=== PATIENT | male | born 1945 | race Caucasian/White ===

== ENCOUNTER 2020-01-11 01:02 | Outpatient (CLI) | payer MEDICARE, SELFPAY ==
[2020-01-11 18:01] LABS: SARS-CoV-2 RNA PCR Negative
== END 2020-01-11 01:03 | disposition home or self-care (01) ==
LOC: ANHCOVIDDT 01:03
PROVIDERS: PCP Family Medicine; Visit Provider Surgery
DX: Z01.812 Encounter for preprocedural laboratory examination (principal); Z20.828 Contact with and (suspected) exposure to other viral communicable diseases
CPT/HCPCS: 87635; C9803; U0003

== ENCOUNTER 2020-01-11 08:35 | Outpatient (CLI) | payer MEDICARE, SELFPAY ==
--- NOTE | 2020-01-11 08:41 | ECG_ITS ---
Measurements Intervals [place] Rate: 63 P: 66 [place]: 182 QRS: 7 QRSD: 84 T: 29 QT: 367 QTc: 376 Interpretive Statements SINUS RHYTHM DELAYED PRECORDIAL R/S TRANSITION BORDERLINE ECG Electronically Signed On 01-11-2020 9:39:43 CDT by Stiven Decker D.O.
[2020-01-11 09:36] LABS: Anion Gap 4 mmol/L (8-16); Blood Urea Nitrogen 25 mg/dL (9-20); Calcium 9.6 mg/dL (8.4-10.2); Carbon Dioxide 28 mmol/L (22-30); Chloride 106 mmol/L (98-107); Estimated Glomerular Filt Rate 46; Glucose 119 mg/dL (75-110); Potassium 5.5 mmol/L (3.4-5.0); Sodium 138 mmol/L (137-145)
== END 2020-01-11 08:36 | disposition home or self-care (01) ==
LOC: ANHSURGERY 08:41
PROVIDERS: Anesthesiology; PCP Family Medicine; Visit Provider Surgery
DX: E11.9 Type 2 diabetes mellitus without complications (principal); I10 Essential (primary) hypertension; Z01.818 Encounter for other preprocedural examination; R94.31 Abnormal electrocardiogram [ECG] [EKG]
CPT/HCPCS: 36415; 80048; 87635; 93005; C9803; U0003

== ENCOUNTER 2020-01-13 01:13 | Day surgery (SDC) | payer MEDICARE, SELFPAY ==
[2020-01-07 15:43] VITALS: BMI 23.0
--- NOTE | 2020-01-13 07:03 | WPDHPUPDATE1 ---
History and Physical Update Update Date/Time: 01/13/20 07:03 History and Physical has been reviewed, including an updated exam of the patient. There are NO changes in the patient's condition. Risks, benefits, and alternatives have been discussed and questions answered. Patient agrees to proceed with procedure.
[2020-01-13 07:04] VITALS: BP 152/78; PULSE 70; RESP 18; TEMP 36.3; O2SAT 99
[2020-01-13] MEDS: ACETAMINOPHEN 500 MG TABLET 1000 MG PO (07:18)
[2020-01-13] MEDS: LACTATED RINGERS 1,000 ML 30 ML IV CONT ×2 (07:33→10:00)
[2020-01-13] MEDS: KETOROLAC 15 MG/ML VIAL (*BKC) IV PUSH (07:36)
[2020-01-13 07:48] LABS: Glucose Point of Care 112 (65-105)
--- NOTE | 2020-01-13 08:05 | WPDANESEPPF ---
Anes - Initial Pre Proc Eval Procedure: Operation Date: 01/13/20 09:00 Proposed Procedures p Right Inguinal Hernia Repair - Gideon Reaves MD Date/Time: 01/13/20 08:05 Surgeon: Gideon Reaves MD Pre Op Diagnosis: Right Inguinal Hernia Patient Data Age: 74 Gender: M Height: 5 ft 11 in Weight: 74.6 kg Last Vital Signs Temp 97.3 F L 01/13/20 07:04 Pulse 70 01/13/20 07:04 Resp 18 01/13/20 07:04 BP 152/78 H 01/13/20 07:04 Pulse Ox 99 01/13/20 07:04 Allergies Allergy/AdvReac Type Severity Reaction Status Date / Time NSAIDS (Non-Steroidal Allergy Unknown HAS ONLY Verified 01/13/20 07:09 Anti-Inflamma ONE KIDNEY Home Medications Medication Instructions Recorded Confirmed Type aspirin 81 mg tablet,delayed 81 mg PO DAILY 05/07/19 01/07/20 History release gabapentin 100 mg capsule 100 mg PO QPM 05/07/19 01/07/20 History lisinopril 5 mg tablet 5 mg PO DAILY 05/07/19 01/07/20 History metformin 500 mg tablet,extended 1,000 mg PO DAILY 05/07/19 01/07/20 History release 24hr dmwxtzlo-yqf-zdjzn acid 300 1 tablet PO DAILY 05/07/19 01/13/20 History mcg-lycopene 600 mcg-lutein 300 mcg tablet simvastatin 40 mg tablet 40 mg PO HS 05/07/19 01/07/20 History acetaminophen 650 mg 650 mg PO Q12H 12/29/19 01/07/20 History tablet,extended release fluticasone furoate 27.5 1 spray NASAL PRN PRN 12/29/19 01/07/20 History mcg/actuation nasal spray,suspension loratadine 10 mg tablet 10 mg PO DAILY 12/29/19 01/07/20 History polyethylene glycol 3350 17 17 gm PO DAILY 12/29/19 01/07/20 History gram/dose oral powder gabapentin 200 mg PO HS 01/07/20 01/07/20 History Laboratory Tests 01/13/20 07:44 POC Capillary Glucose 112 mg/dl H mg/dl (65-105) Patient hx anesthesia problems: none Family hx anesthesia problems: none [facility] Past Medical History Medical History (Updated 12/29/19 @ 10:26 by Myrna Roth) Bladder cancer Diabetes A1C=6.6 History of kidney cancer Inguinal hernia of left side without obstruction or gangrene Kidney disease Skin problem Surgical History Surgical History (Updated 12/29/19 @ 10:10 by Shayy Stephenson) H/O shoulder surgery History of bladder surgery 2016 History of kidney removal 2017 History of knee replacement Right and left 2009 & 2005 Previous back surgery Social History Social History Smoking packs per day: 0.5 Smoking cigarettes per day: 10.0 Years smoked: 15 Smoking pack-years: 7.50 Smoking status: Former smoker Tobacco type: cigarettes Smoking end date: 04/15/77 Alcohol intake: never Living arrangements: with family Additional living arrangements comments: Violeta Richard Spiritual care concerns: No Anes - Eval Final PreProcedure Day of Procedure 01/13/20 08:05 Patient weight: normal Heart: regular rate and rhythm Lungs: clear to auscultation Airway: Mallampati scale class II Neurological: alert and oriented Last oral intake: >/= 8 hours ASA classification: III Emergent: no Anesthetic plan: proceed Anesthesia type and monitoring: general GIVS and standard monitoring Informed Consent: The patient's anesthetic plan and its attendant risks and benefits were discussed with the patient/family/POA. Questions were solicited and answers provided to the satisfaction of the patient/family/POA.
--- NOTE | 2020-01-13 08:12 | PM.PROC ---
Procedure Note - Detailed Date of procedure: 01/13/20 Pre-op diagnosis: Right Inguinal Hernia Right inguinal hernia Post-op diagnosis: same (Indirect hernia) Procedure performed: Repair of right inguinal hernia with 6 cm Parietex hernia mesh system Description of procedure: The patient was taken to surgery and IV sedation was administered. The right groin and genitalia were prepped and draped. Proposed incision was marked on the skin. Local was infiltrated into the skin and the deeper subcutaneous tissues. Incision was made and deepened through the subcutaneous. Crossing veins were cauterized and divided. Dissection was carried through Rufus's fascia down to the external oblique aponeurosis. The aponeurosis was exposed as was the external ring. Additional local anesthesia was infiltrated deep to the aponeurosis in the area of the spermatic cord and inguinal canal contents. The aponeurosis was opened laterally and extended medially through the external ring. The leaves of the aponeurosis were dissected free from the spermatic cord. The ileoinguinal nerve was carefully preserved throughout the dissection and was left attached to the spermatic cord. The cord was then mobilized medially on a [place] drain. The cord was dissected back to the internal ring. Dissection was then carried out in the anteromedial spermatic cord. The hernia sac was found and dissected free. The sac was opened so that I could place a finger within the hernia sac and facilitate this dissection. This opening was then closed with a running 3 0 Vicryl suture. The sac was then dissected back to a high dissection. It was dunked into the retroperitoneum. A 6 centimeter Parietex barrow was chosen. It was folded to form a plug. It was placed in the defect. The edges were sutured to the transversalis fascia with interrupted 3 0 Vicryl suture. The hernia defect was then partially closed with some additional 3 0 Vicryl suture. Patch was then cut to the appropriate size and placed over the inguinal canal floor. The lateral leaves were passed beyond the cord. The cord and ileoinguinal nerve were then laid over the patch. The external oblique aponeurosis was closed with interrupted 3 0 Vicryl suture. Rufus's fascia was closed with interrupted 3 0 Vicryl suture. The subcutaneous was closed with interrupted 4 0 Vicryl suture. Four 0 Vicryl subcuticular skin sutures were placed. The skin was closed finally with a running 4 0 Monocryl skin suture. The wound was dressed with Exofin surgical adhesive. The patient was awakened and taken to recovery in good condition. Sponge and needle counts were correct x2. Anesthesia: MAC and local (0.5% Marcaine with Exparel) Surgeon: Gideon Reaves MD Food Production Machine Operator: Devorah FALLON Estimated blood loss (mL): 5 Drains: No Packing: No Pathology: none sent Complications: None Condition: stable Disposition: PACU Findings: Indirect inguinal hernia. No sliding hernia was noted.
[2020-01-13] MEDS: ceFAZolin 2 GM/D5W 50 ML 2 GM/50 ML BAG IVPB (08:24)
[2020-01-13 09:50] VITALS: BP 107/56; PULSE 54; RESP 14; O2SAT 100
[2020-01-13 09:50] LABS: Glucose Point of Care 118 (65-105)
[2020-01-13 10:10] VITALS: BP 109/60; PULSE 54; RESP 12; O2SAT 99
[2020-01-13 10:35] VITALS: BP 143/70; PULSE 55; RESP 14
== END 2020-01-13 11:10 | disposition home or self-care (01) ==
PROVIDERS: PCP Family Medicine; Visit Provider Surgery
PROC: (CPT 49505; principal; 2020-01-13 09:00)
DX: K40.90 Unilateral inguinal hernia, without obstruction or gangrene, not specified as recurrent (principal); I10 Essential (primary) hypertension; E11.9 Type 2 diabetes mellitus without complications; Z85.51 Personal history of malignant neoplasm of bladder; Z85.528 Personal history of other malignant neoplasm of kidney; Z90.5 Acquired absence of kidney; Z87.891 Personal history of nicotine dependence; Z79.82 Long term (current) use of aspirin; Z79.84 Long term (current) use of oral hypoglycemic drugs
CPT/HCPCS: 49505; A9270; C1781; C9290; J0690; J1885; J2704; J7120

== ENCOUNTER → 2021-10-26 14:42 | Outpatient (CLI) | payer MEDICARE, SELFPAY ==
--- NOTE | ~2021-10-26 | MR_ITS ---
EXAMINATION: MR shoulder LT wo con DATE: 10/26/2021 15:59 INDICATION: Left shoulder pain TECHNIQUE: Magnetic resonance imaging (MRI) of the left shoulder was performed without intravenous co ntrast. Sequences included axial PD-weighted FS FSE, coronal oblique PD-weighted FS FSE, coronal obli que T2-weighted FS FSE, sagittal PD-weighted FS FSE, and sagittal T1-weighted SE. COMPARISON: None. FINDINGS: Coracoacromial arch: The acromion undersurface is curved in morphology (type II). The coracoacromial ligament is normal. M oderate acromioclavicular osteoarthritis. Rotator cuff: Moderate supraspinatus and infraspinatus tendinopathy. Full-thickness tear along the greater tuberosi ty footplate of the conjoined portion of the supraspinatus and infraspinatus tendons which measures a pproximately 10 mm AP and 1.7 cm medial to lateral. Articular sided tearing extends into the more ant erior supraspinatus tendon and infraspinatus tendon with up to 3.5-4 cm medial retraction of the torn articular side of the tendons. The teres minor tendon is normal. Mild subscapularis tendinopathy wit hout discrete tear. Mild supraspinatus and infraspinatus muscle atrophy with decrease in the cross-se ctional area of the muscle bellies but with only minimal fatty infiltration. Biceps tendon, glenoid labrum and glenohumeral cartilage: Moderate tendinopathy of the long head biceps tendon with partial-thickness tear along the intra-lisa cular portion of the tendon. Glenoid labrum is normal. Glenohumeral cartilage is normal. Fluid: Small glenohumeral joint effusion with proportional extension of a small amount of fluid along the bi ceps tendon sheath. No loose osteochondral bodies. There is extension of a small amount of fluid int o the subacromial/subdeltoid bursa through the full-thickness rotator cuff tear. Bones: Bone alignment is normal. No fracture or pathologic marrow replacing process. IMPRESSION: 1. Moderate supraspinatus and infraspinatus tendinopathy with moderate severity articular sided tear extending across the distal insertion of both tendons with 1 cm wide full-thickness component at the conjoined portion of the tendons. 2. Moderate tendinopathy of the long head biceps tendon with partial thickness tear of the intra-lisa cular portion of the tendon. 3. Moderate acromioclavicular osteoarthritis. Reviewed, dictated and finalized at location B. IMPRESSION: 1. Moderate supraspinatus and infraspinatus tendinopathy with moderate severity articular sided tear extending across the distal insertion of both tendons wit h 1 cm wide full-thickness component at the conjoined portion of the tendons. 2. Moderate tendinopathy of the long head biceps tendon with partial thickness tear of the intra-articular portion of the tendon. 3. Moderate acromioclavicular osteoarthritis.
== END ==
PROVIDERS: PCP Family Medicine; Visit Provider Orthopaedic Surgery
DX: M19.012 Primary osteoarthritis, left shoulder (principal)
CPT/HCPCS: 73221

== ENCOUNTER 2021-11-09 07:43 | Outpatient (CLI) | payer MEDICARE, SELFPAY ==
--- NOTE | 2021-11-09 07:49 | ECG_ITS ---
Measurements Intervals [place] Rate: 72 P: 75 [place]: 144 QRS: 5 QRSD: 82 T: 39 QT: 343 QTc: 376 Interpretive Statements SINUS RHYTHM BASELINE ARTIFACT- I, II, III, AVR, AVL, AVF, V3 NORMAL ECG Electronically Signed On 11-09-2021 8:47:55 CDT by Stiven Decker D.O.
[2021-11-09 08:33] LABS: Anion Gap 12 mmol/L (8-16); Blood Urea Nitrogen 30 mg/dL (9-20); Carbon Dioxide 24 mmol/L (22-30); Chloride 105 mmol/L (98-107); Estimated Glomerular Filt Rate 49; Glucose 243 mg/dL (65-110); Potassium 4.3 mmol/L (3.4-5.0); Sodium 141 mmol/L (137-145)
== END 2021-11-09 07:44 | disposition home or self-care (01) ==
LOC: ANHSURGERY 07:49
PROVIDERS: Anesthesiology; PCP Family Medicine; Visit Provider Orthopaedic Surgery
DX: E78.5 Hyperlipidemia, unspecified (principal); E11.9 Type 2 diabetes mellitus without complications
CPT/HCPCS: 36415; 80048; 93005

== ENCOUNTER 2021-11-13 01:28 | Day surgery (SDC) | payer MEDICARE, SELFPAY ==
[2021-11-07 14:03] VITALS: BMI 23.7
--- NOTE | 2021-11-07 14:08 | PC.NURSE ---
Report to the Outpatient Waiting Room, entrance under the green pavilion located off [facility], at time _0600_ on date _21-13-1251_. OR Time: 0730_. - You and your visitor will be asked a series of questions to screen for COVID 19 for your protection. - Only one visitor is allowed at this time. - The patient visitor is requested to leave or wait in car when not with patient. - A mask is required within the hospital. Patients may have clear liquids (water, carbonated beverages, clear teas, apple juice) until 3 hours prior to surgery with a maximum of 20 ounces. - No food from midnight until time of surgery Take the following medications with a SIP of water the morning of surgery: __Gabapentin Medications to discontinue per physician ____Vitamins Date to take last tirt___[id number] Please no make-up, nail sammarinese, hairspray, perfume, deodorant, or body powder the day of surgery. No jewelry (including any body piercings) or valuables the day of surgery, leave them at home. Please take a shower or bath the night before, or the morning of, surgery with an antibacterial soap. Wear comfortable, loose fitting clothing. - Jewelry must be removed prior to entering the operating room. Rings and piercings that are not removed may be cut off. - The hospital will not accept responsibility for valuables. - Please leave all valuables, including medications, at home the day of surgery. If you are going home after surgery, a licensed refuse driver must drive you home. - NO public transportation without another adult. - We recommend that an adult stay with you for 24 hours following discharge. - We also recommend that you do not drive, make important decision, drink alcoholic beverages, or take any drugs that were not prescribed by your health care provider for at least 24 hours after your discharge time. Follow any additional instructions given to you from your surgeon. If you or anyone in your household have experienced Covid symptoms in the past week, please notify your surgeon or the nurse liaison at the phone number below for possible testing. Telephone instructions given to _Patient___and asked if any additional questions and then verbalized understanding. Patient advised to call surgeon office or pre surgery nurse liaison [phone] if any additional questions.
--- NOTE | 2021-11-10 14:25 | WPDANESEPPF ---
Anes - Initial Pre Proc Eval Procedure: Operation Date: 11/13/21 07:30 Proposed Procedures p Left Shoulder Arthroscopy, Possible Open Rotator Cuff Repair - Parish Shukla MD Date/Time: 11/10/21 14:25 Surgeon: Parish Shukla MD Pre Op Diagnosis: left rotator cuff tear Patient Data Age: 76 Gender: M Height: 1.78 m Weight: 75 kg Allergies Allergy/AdvReac Type Severity Reaction Status Date / Time NSAIDS (Non-Steroidal Allergy Unknown HAS ONLY Verified 11/13/21 06:00 Anti-Inflamma ONE KIDNEY Home Medications Medication Instructions Recorded Confirmed Type gabapentin 100 mg capsule 100 mg PO TID 05/07/19 11/13/21 History lisinopril 5 mg tablet 5 mg PO DAILY 05/07/19 11/13/21 History sjiwvrse-ety-qpfkd acid 300 1 tablet PO DAILY 05/07/19 11/13/21 History mcg-lycopene 600 mcg-lutein 300 mcg tablet (Centrum Silver Men) simvastatin 40 mg tablet 40 mg PO HS 05/07/19 11/13/21 History acetaminophen 650 mg 650 mg PO Q12H 12/29/19 11/13/21 History tablet,extended release (Tylenol 8 Hour) fluticasone furoate 27.5 1 spray intranasal PRN PRN Allergy 12/29/19 11/13/21 History mcg/actuation nasal Symptoms spray,suspension loratadine 10 mg tablet (Claritin) 10 mg PO DAILY 12/29/19 11/13/21 History polyethylene glycol 3350 17 17 gm PO DAILY 12/29/19 11/13/21 History gram/dose oral powder (Miralax) Prevagen 1 tab-cap PO QAM 11/07/21 11/13/21 History famotidine 40 mg tablet 40 mg PO HS 11/07/21 11/13/21 History rosuvastatin 10 mg tablet 10 mg PO DAILY 11/07/21 11/13/21 History Patient hx anesthesia problems: none Family hx anesthesia problems: none Results Review: All pre-operative results and documents have been reviewed as part of the pre-operative evaluation. [facility] Past Medical History Medical History (Updated 11/10/21 @ 14:26 by Trent Stephenson MD) Bladder cancer Diabetes A1C=6.6 History of kidney cancer HTN (hypertension) Hyperlipidemia Inguinal hernia of left side without obstruction or gangrene Kidney disease Left rotator cuff tear Pain in left shoulder Skin problem Surgical History Surgical History H/O shoulder surgery Right rotator cuff repair History of bladder surgery 2016 History of kidney removal 2017 History of knee replacement Right and left 2010 & 2005 Previous back surgery Right inguinal hernia Social History Social History Smoking packs per day: 1 Smoking cigarettes per day: 20.0 Years smoked: 5 Smoking pack-years: 5.00 Smoking status: Former smoker Tobacco type: cigarettes Smoking end date: 11/08/71 Alcohol intake: former Living arrangements: with family Additional living arrangements comments: Violeta Richard Spiritual care concerns: No Anes - Eval Final PreProcedure Day of Procedure 11/10/21 14:25 Patient weight: normal Heart: regular rate and rhythm Lungs: clear to auscultation Airway: Mallampati scale class II Neurological: alert and oriented Last oral intake: >/= 8 hours ASA classification: III Emergent: no Anesthetic plan: proceed Anesthesia type and monitoring: general ETT and standard monitoring Results Review: All pre-operative results and documents have been reviewed as part of the pre-operative evaluation. Informed Consent: The patient's anesthetic plan and its attendant risks and benefits were discussed with the patient/family/POA. Questions were solicited and answers provided to the satisfaction of the patient/family/POA.
[2021-11-13] VITALS (7 sets, daily range): BP systolic 118–137; BP diastolic 57–79; PULSE 51–65; RESP 12–16; TEMP 36.3–36.4; O2SAT 96–99
[2021-11-13] MEDS: ACETAMINOPHEN 500 MG TABLET 1000 MG PO (06:37)
[2021-11-13] MEDS: LACTATED RINGERS 1,000 ML 30 ML IV CONT ×2 (06:37→09:38)
--- NOTE | 2021-11-13 07:19 | WPDHPUPDATE1 ---
History and Physical Update Update Date/Time: 11/13/21 07:19 History and Physical has been reviewed, including an updated exam of the patient. There are NO changes in the patient's condition. Risks, benefits, and alternatives have been discussed and questions answered. Patient agrees to proceed with procedure.
[2021-11-13 07:34] LABS: Glucose Point of Care 147 mg/dl (65-105)
--- NOTE | 2021-11-13 07:40 | WPDANESPNB ---
Anes - Peripheral Nerve Block Date/Time: 11/13/21 07:40 I have discussed with the patient/family/POA the placement of a peripheral nerve block for post-operative pain management, including associated risks, benefits, complications, and side effects. Alternative methods of post-operative analgesia were detailed. Questions were solicited and answers provided to the satisfaction of the patient/family/POA. Time-Out: A pre-procedural Time-Out was completed immediately before starting the procedure and confirmed: Patient Identification, Site, Procedure, Patient Position and the Availability of Requisite Equipment. Clinical Indications: Acute post-operative pain management requested by the operative surgeon. Nerve Block Insertion Note Anes-nerve block: supraclavicular left Patient position: supine Skin prep: chlorhexidine Needle: 22 gauge, stimulating, insulated echogenic needle. Needle length: 80 mm Technique: ultrasound (in plane) Injectate: bupivacaine 0.5% with epi 5 mcg/ml (20cc) Observations: tolerated well Complications: none Procedure start time:: 720 Procedure end time:: 725
[2021-11-13] MEDS: ceFAZolin 2 GM/D5W 50 ML 2 GM/50 ML BAG IVPB (07:42)
[2021-11-13] MEDS: BUPIVACAINE/EPINEPHRINE 0.25% 50 ML VIAL 10 ML INFILTRATE (09:02)
[2021-11-13] MEDS: EPINEPHrine HCL INJ 1 MG/ML AMPUL IRRIGATION (09:03)
[2021-11-13 09:48] LABS: Glucose Point of Care 164 mg/dl (65-105)
--- NOTE | 2021-11-13 10:12 | P.OP_ITS ---
Procedure Note - Detailed Date of Procedure 11/13/21 Pre-op Diagnosis left rotator cuff tear with AC arthritis Post-op Diagnosis Same Procedure Performed Left shoulder diagnostic arthroscopy with open distal clavicle excision and rotator cuff repair Surgeon Parish Shukla MD Wood Machine Carver Zack Ritter Anesthesia General and Regional Description of Procedure Patient was identified and proper site identified. In the preop holding area the anesthesia team performed a left extremity block. He was then taken to the operating room and transferred to the or table taking care to pad the torso and extremities. After general anesthetic induction and intubation, hewas put in a semi beach chair position in the usual manner for a left shoulder procedure. His head was secured taking care to neither rotate nor extend the head and neck. The left upper extremity was prepped and draped free in usual sterile fashion. The subcutaneous tissue in the area of the incisions was injected with a total of 20 cc of 0.25% Marcaine and epinephrine solution. The shoulder arthroscopy was performed first. Through a posterior scope portal an anterior outflow portal the cuff was examined. There was a hole in the cuff however it was able to be delivered back to the greater tuberosity with the arm at the side and no undue tension so the decision was made to go ahead with an open repair. An oblique anterior incision was made extending from the AC joint distally in line with the fibers of the deltoid. Subcutaneous tissue was sharply dissected down to the deltoid fascia. The deltoid was dissected off the anterior portion of the acromion in the distal end of the clavicle. A 2 cm split was made at the junction between the anterior and middle thirds of the deltoid. Using the microsagittal saw the last 8 mm of clavicle removed. The saw was also used to perform the acromioplasty and then the undersurface of the acromion was rasped smooth.. There was an abundance of thickened bursa which was sharply debrided. The biceps tendon which was noted to be frayed on the scope portion was divided in tagged for soft tissue tenodesis. The tendon edges were freshened up. Tuberosity was prepared for repair. The tendon was repaired [id number] with 2. Ethibond suture and then 2. Ethibond suture was used to secure to the greater tuberosity through bony bridge. This gave an anatomic repair which was stable as the shoulder was taken through range of motion. The wound was irrigated with sterile NaCl solution. The deltoid was repaired back to the acromion with 2. Ethibond suture passed through bone and the remainder of the deltoid repair carried out with 2. Vicryl. Subcutaneous tissue was reapproximated with 3-0 Monocryl, three 0 V lock and then 3-0 nylon was used for skin at all of the incisions. Sterile dressing was applied. There were no known intraoperative complications, and perioperative antibiotics were administered. Estimated Blood Loss -15.0 Drains No Packing No Pathology None sent Complications No immediate complications Condition Stable Disposition PACU
--- NOTE | 2021-11-13 11:52 | SUR.PHASEII ---
PATIENT ASSISTED GETTING DRESSED PER 2 RN'S.
== END 2021-11-13 11:25 | disposition home or self-care (01) ==
PROVIDERS: PCP Family Medicine; Visit Provider Orthopaedic Surgery
PROC: (CPT 29805; principal; 2021-11-13 07:30)
DX: M75.102 Unspecified rotator cuff tear or rupture of left shoulder, not specified as traumatic (principal); M19.012 Primary osteoarthritis, left shoulder; E11.9 Type 2 diabetes mellitus without complications; Z87.891 Personal history of nicotine dependence; G89.18 Other acute postprocedural pain
CPT/HCPCS: 23412; 23120; 64415; 82948; A4565; A9270; J0171; J0690; J1100; J2250; J2405; J2704; J3010; J7120

== ENCOUNTER → 2022-09-15 08:10 | Outpatient (CLI) | payer MEDICARE, SELFPAY ==
--- NOTE | ~2022-09-15 | MR_ITS ---
MRI of the thoracic spine Clinical History: Back pain Technique: Axial T2-weighted and gradient images, and sagittal T1-weighted, T2-weighted, and STIR janette ges were acquired. Findings: There is no fracture or subluxation of the thoracic spine. Vertebral bodies maintain normal height and alignment. No bone marrow signal reality identified. No significant disc bulge or herniation seen at any thoracic level. There is no spinal canal stenosis or cord compression. No epidural mass or collection identified. There is advanced facet arthropathy at T11-T12 and T12-L1. Paravertebral soft tissues are unremarkable. Impression: Advanced facet arthropathy at T11-T12 and T12-L1. No other significant findings in the thoracic spine. Reviewed, dictated and finalized at [facility]. Impression: Advanced facet arthropathy at T11-T12 and T12-L1. No other significant findings in the thoracic spine.
== END ==
PROVIDERS: PCP Family Medicine; Visit Provider Nurse Practitioner Family
DX: M54.6 Pain in thoracic spine (principal)
CPT/HCPCS: 72146

== ENCOUNTER 2022-11-14 10:40 | Outpatient (CLI) | payer MEDICARE, SELFPAY ==
--- NOTE | 2022-11-14 | ECG_ITS ---
Measurements Intervals [place] Rate: 52 P: 47 [place]: 153 QRS: -9 QRSD: 86 T: 28 QT: 392 QTc: 365 Interpretive Statements SINUS BRADYCARDIA COMPARED TO ECG 11/09/2021 08:11:08 SINUS BRADYCARDIA NOW PRESENT Electronically Signed On 11-14-2022 19:35:29 CDT by Rosa Rdz M.D.
[2022-11-14 11:35] LABS: Appearance Urine Clear (Clear); Bilirubin Urine Negative (Negative); Blood Urine Negative (Negative); Color Urine Yellow (Yellow); Glucose Urine UA Negative (Negative); Ketones Urine Negative (Negative); Leukocyte Esterase Ur Negative LEU/UL (Negative); Nitrate Urine Negative (Negative); Protein Urine Negative (Negative); Specific Grav Ur 1.014 (1.001-1.035)
[2022-11-14 11:40] LABS: Alanine Aminotransferase 25 U/L (6-50); Albumin Level 4.3 g/dL (3.5-5.1); Alkaline Phosphatase 67 U/L (38-126); Anion Gap 9 mmol/L (8-16); Aspartate Amino Transferase 31 U/L (17-59); Bilirubin,Total 0.4 mg/dL (0.2-1.3); Blood Urea Nitrogen 30 mg/dL (9-20); CRP < 0.5 mg/dL (<1.0); Calcium 9.7 mg/dL (8.4-10.2); Carbon Dioxide 28 mmol/L (22-30); Chloride 104 mmol/L (98-107); Estimated Glomerular Filt Rate 42; Glucose 130 mg/dL (65-110); Sodium 141 mmol/L (137-145)
[2022-11-14 11:42] LABS: Basophils Percent Auto 0.6 % (0.2-1.2); Eosinophils Absolute Auto 0.2 K/mm3 (0-0.3); Eosinophils Percent Auto 4.1 % (0-4.4); Hematocrit 38.8 % (42.0-52.0); Hemoglobin 12.6 g/dL (14.0-18.0); Immature Granulocyte Absolute 0.01 K/mm3 (0.00-0.031); Immature Granulocyte Percent A 0.2 % (0-0.5); Lymphocytes Absolute Auto 1.66 K/mm3 (0.9-3.2); Lymphocytes Percent Auto 35.5 % (18.3-44.2); Mean Corpuscular HGB Conc 32.5 g/dl (32-36); Mean Corpuscular Hemoglobin 30.8 pg (26-34); Mean Corpuscular Volume 94.9 fl (80-100); Monocytes Absolute Auto 0.3 K/mm3 (0.1-0.6); Monocytes Percent Auto 7.3 % (2.6-8.5); Neutrophils Absolute Auto 2.4 K/mm3 (1.3-6.7); Neutrophils Percent Auto 52.3 % (45.5-73.1); Platelet Count Result 206 k/mm3 (150-375); Red Blood Count 4.09 M/mm3 (4.6-6.20); Red Cell Distribution Width 12.9 % (11.5-14.5); White Blood Count 4.7 K/mm3 (4.5-10.0)
[2022-11-14 11:47] LABS: Add Urine Microscopic? NO
[2022-11-14 12:36] LABS: Erythrocyte Sedimentation Rate 24 mm/hr (0-20)
== END 2022-11-14 10:41 | disposition home or self-care (01) ==
PROVIDERS: PCP Family Medicine; Visit Provider Pain Medicine Pain Medicine
DX: Z01.818 Encounter for other preprocedural examination (principal); R00.1 Bradycardia, unspecified
CPT/HCPCS: 36415; 80053; 81003; 85025; 85652; 86140; 93005

== ENCOUNTER 2023-10-22 14:30 | Outpatient (CLI) | payer MEDICARE, SELFPAY ==
--- NOTE | ~2023-10-22 | CT_ITS ---
EXAMINATION: CT abdomen pelvis wo con DATE: 10/22/2023 14:51 INDICATION: Chronic kidney disease. Nephrolithiasis. TECHNIQUE: Computed tomography (CT) of the abdomen and pelvis was performed without intravenous contr ast. Automated exposure control and iterative reconstruction technique were employed. The dose-length product was 212.45 mGy-cm. COMPARISON: None. FINDINGS: Calcified right lung nodules and calcified right hilar lymph nodes are consistent with old granulomatous disease. No pleural effusion. The heart size is normal. There are coronary artery calci fications. No pericardial effusion. The liver, gallbladder, spleen, pancreas, and adrenal glands are normal. Right kidney is absent. There are cysts in left kidney measuring up to 2.1 cm. There is no ur olithiasis. The prostate is mildly enlarged. There is diverticulosis of the colon without evidence of diverticulitis. There are no dilated loops of bowel. The appendix is not visualized. There is calcif ied atherosclerosis of the aorta and many of the other arteries. There are epidural electrodes in tho racic spine. There is severe lumbar spondylosis. There are changes of anterior and posterior fusion p rocedures from L3 to S1. IMPRESSION: 1. No urolithiasis. 2. Absent right kidney. Reviewed, dictated and finalized at location E.
== END 2023-10-22 14:31 | disposition home or self-care (01) ==
PROVIDERS: PCP Family Medicine; Visit Provider Family Medicine
DX: M51.36 Other intervertebral disc degeneration, lumbar region (principal); N18.30 Chronic kidney disease, stage 3 unspecified; N28.1 Cyst of kidney, acquired; N20.0 Calculus of kidney; Z90.5 Acquired absence of kidney
CPT/HCPCS: 74176

== ENCOUNTER 2025-03-09 09:24 | Outpatient (CLI) | payer MEDICARE, SELFPAY ==
--- OUTSIDE RECORDS SUMMARY | 2025-03-09 10:12 | XMS_ITS | Clinical Summary ---
Author Organization [facility] Address [address] [place] [address] Phone Care Team Providers Care Valver Name Role Phone Sandra Erazo MD Primary Care Provider Allergies Active Allergy Reactions Criticality Noted Date Comments Morphine Other (see Comments) 08/21/2024 Crazy talk Iohexol Unknown 03/02/2024 Reported on booking form for surgery Medications gabapentin (NEURONTIN) 100 MG Capsule Take 100 mg by mouth daily. Active atorvastatin (LIPITOR) 40 MG Tablet Take 40 mg by mouth nightly. Active QUEtiapine (SEROquel) 25 MG Tablet Take 25 mg by mouth nightly. Active multiple vitamin with minerals (CENTRUM SILVER) Tablet Take 1 Tablet by mouth daily. Active aspirin EC 81 MG Tablet Delayed Response Take 81 mg by mouth daily. Active Active Problems Problem Noted Date Diagnosed Date Postlaminectomy syndrome of lumbar region 2024 Family History Medical History Relation Name Comments Heart Attack Father Cancer Mother stomach Relation Name Status Comments Father Mother Social History Tobacco Use Types Packs/Day Years Used Date Smoking Tobacco: Former Cigarettes Smokeless Tobacco: Never Tobacco Cessation:Counseling Given: Not Answered Comments:Quit smoking 50 years ago Alcohol Use Standard Drinks/Week Comments Never 0 (1 standard drink = 0.6 oz pur e alcohol) Sex and Gender Information Value Date Recorded Sex Assigned at Not on file 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 Gender Identity Not on file Sexual Orientation Not on file Last Filed Vital Signs Vital Sign Reading Time Taken Comments Blood Pressure 128/73 09/11/2024 1:03 PM CDT Pulse 59 09/11/2024 1:03 PM CDT Temperature 36.3 C (97.4 F) 09/11/2024 1:03 PM CDT Respiratory Rate 16 09/11/2024 1:03 PM CDT Oxygen Saturation 97% 09/11/2024 1:03 PM CDT Inhaled Oxygen Concentration - - Weight 64.5 kg (142 lb 3 oz) 09/11/2024 8:00 AM CDT Height 180.3 cm (5' 11) 09/11/2024 8:00 AM CDT Body Mass Index 19.83 09/11/2024 8:00 AM CDT Plan of Treatment Health Maintenance Due Date Last Done Comments Hepatitis C Virus (HCV) Screening 1945 Medicare Initial AWV [id number] 09/14/2011 Respiratory Syncytial Virus (RSV) Immunization (Adult) (1 - 1-dose 75+ series) 2020 Zoster Immunization (3 of 3) 10/21/2023 08/26/2023, 07/16/2022 Influenza Immunization (#1) 12/14/202411/2023, 01/19/2023, 01/19/2023, Additional history exists SARS-COV-2 Immunization ( season) 2024 04/20/2023, 03/14/2022, 03/14/2022, Additional history exists TdaP Immunization Completed 05/03/2017, 03/02/2013 Pneumococcal Immunization (50+ years) Completed 08/14/2023, 05/20/2019, 03/04/2018 Hepatitis B Immunization Aged Out No longer eligible based on patient's age to complete this topic Human Papillomavirus (HPV) Immunization Aged Out No longer eligible based on patient's age to complete this topic Meningococcal Immunization (ACWY) Aged Out No longer eligible based on patient's age to complete this topic Rotavirus Immunization Aged Out No lo nger eligible based on patient's age to complete this topic Medical Devices Implanted Type Area Animal Ecologist Device Identifier Shelf Expiration Date Model / Serial / Lot Generator Neurostimulator Eterna Implantable Pulse 16 Channel With Patient Controller - [id number] Implanted:Qty: 1 on 09/11/2024 by Hosea Vargas MD at [facility] IMPLANT N/A: Back [employer] 06/05/2026 [id number] / [id number] Description:Silvano Kit - # 2 [id number] Included in Kit with implantable Generator 1) controller # [id number] 2) Manual # 10512 3) Charging System # [id number] Insurance MEDICARE [facility] Care Teams Valver Relationship Specialty Start Date End Date Sandra Erazo MD [address] [place] [address] PCP - General Family Medicine 09/11/24
--- NOTE | 2025-03-09 11:30 | NEURO_ITS ---
Impression: # Complains of left lower extremity paresthesia of skin. History of knee surgery. ? 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 ? # Abnormal needle/EMG exam with neurogenic changes probably secondary involvement at popliteal level. MRI of lumbar spin suggested. # Only left lower extremity tested do to patient request Nerve Conduction Studies ?Stim Site NR Peak (ms) P-T Amp (?V) Site1 Site2 Delta-P (ms) Dist (cm) Benny (m/s) Left Sup Fibular Anti Sensory (Ant Lat Mall)??? NO RESPONSE 14 cm NR 14 cm Ant Lat Mall 16.0 Left Sural Anti Sensory (Lat Mall) Calf ? 3.5 15.5 Calf Lat Mall 3.5 16.0 46 ?Stim Site NR Onset (ms) O-P Amp (mV) Site1 Site2 Delta-0 (ms) Dist (cm) Benny (m/s) Left Peroneal Motor (Vastus Med) Ankle ? 4.8 0.1 Popit Ankle 11.1 42.0 38 Popit ? 15.9 0.1 Left Tibial Motor (Abd Zhang Brev) Ankle ? 5.5 1.4 Knee Ankle 11.5 45.0 39 Knee ? 17.0 0.8 F Wave Studies ?NR F-Lat (ms) L-R F-Lat (ms) Left Peroneal (Mrkrs) (EDB)??? NO RESPONSE NR Left Tibial (Mrkrs) (Abd Hallucis) ? 68.60 Electromyography ?Side Muscle Nerve Root Ins Act Fibs Amp Dur Recrt Comment Left AntTibialis Dp Br Fibular L4-5 Nml Nml Decr >12ms +1 Left Gastroc Tibial S1-2 Nml Nml Decr >12ms +1 Left Fibularis Long Sup Br Fibular L5-S1 Nml Nml Decr >12ms +1 Left Flex Dig Long Tibial L5-S2 Nml Nml Decr >12ms +1 Left Ext Dig Brev Dp Br Fibular L5, S1 Nml Nml Decr >12ms +2 Left QuadratusFem QuadFemoris L4-5, S1 Nml Nml Decr >12ms +1
== END 2025-03-09 09:25 | disposition home or self-care (01) ==
LOC: ANHNEURO 09:25
PROVIDERS: PCP Family Medicine; Visit Provider Nurse Practitioner Family
DX: M79.662 Pain in left lower leg (principal); R20.2 Paresthesia of skin; R94.131 Abnormal electromyogram [EMG]
CPT/HCPCS: 95886; 95908